=== PATIENT | male | born 1970 | race Caucasian/White ===

== ENCOUNTER 2016-12-11 02:52 | Emergency (ER) | payer BC ==
[2016-12-11 03:26] LABS: BASOPHILS 0.5 %; BASOPHILS ABSOLUTE 0.04 10/3/uL (0.0-0.16); EOSINOPHILS 3.2 %; EOSINOPHILS ABSOLUTE 0.24 10/3/uL (0.0-0.53); ER CBC TAT 0 Hrs 05 Mins; HEMATOCRIT 40.7 % (40.0-51.0); HEMOGLOBIN 14.5 g/dL (13.6-17.8); IMMATURE GRANULOCYTES 0.4 %; IMMATURE GRANULOCYTES ABSOLUTE 0.03 10/3/uL (0.0-0.11); LYMPHOCYTES 37.8 %; MEAN CORPUS HGB CONC 35.6 g/dL (32.0-36.0); MEAN CORPUSCULAR HEMOGLOB 30.5 pg (26.0-34.0); MEAN CORPUSCULAR VOLUME 85.5 fL (80-100); MEAN PLATELET VOLUME 9.5 fL (9.2-13.0); MONOCYTES ABSOLUTE 0.59 10/3/uL (0.21-1.20); NEUTROPHILS 50.1 %; NEUTROPHILS ABSOLUTE 3.71 10/3/uL (2.02-8.40); PLATELET COUNT 255 10/3/uL (150-400); RBC DISTRIBUTION WIDTH 12.8 % (12.0-16.0); RED CELL COUNT 4.76 10/6/uL (4.7-6.1); WHITE BLOOD CELLS 7.4 10/3/uL (4.5-10.5)
[2016-12-11 03:27] LABS: MANUAL DIFF NO %
[2016-12-11 03:46] LABS: A/G RATIO 1.4 (0.7-1.9); ALBUMIN 4.1 G/DL (3.5-5.0); ALKALINE PHOSPHATASE 73 U/L (45-117); BUN (BLOOD UREA NITROGEN) 12 MG/DL (6-23); CALCIUM, SERUM 8.9 MG/DL (8.5-10.4); CHLORIDE, SERUM 107 MMOL/L (96-112); CO2 (CARBON DIOXIDE) 27 MMOL/L (24-34); CREATININE 1.33 MG/DL (0.70-1.30); GFR AFRICAN AMERICAN 74 ML/MIN (>=60); GFR NON AFRICAN AMERICAN 64 ML/MIN (>=60); GLUCOSE, SERUM 103 MG/DL (60-99); POTASSIUM, SERUM 4.5 MMOL/L (3.5-5.3); SGOT(AST) 12 U/L (5-40); SGPT(ALT) 20 U/L (5-65); SODIUM, SERUM 145 MMOL/L (135-148); TOTAL BILIRUBIN 1.2 MG/DL (0-1.2); TOTAL PROTEIN 7.1 G/DL (6.0-8.5)
[2016-12-11 03:47] LABS: LACTATE 1.9 MMOL/L (0.3-2.4)
[2016-12-12] MEDS ORDERED: TIMOLOL MAL0.25 % OPH (16:48)
[2016-12-12] MEDS ORDERED: ADVIL PO (16:49)
== END 2016-12-11 05:09 | disposition home or self-care (01) ==
LOC: ER 02:52
PROVIDERS: Nurse Practitioner
DX: R51 Headache (principal); I10 Essential (primary) hypertension
CPT/HCPCS: 70450; 80053; 83605; 84145; 85025; 96374; 96375; 99284; J1170; J1200; J1885; J2360; J2550; J2765

== ENCOUNTER 2016-12-12 11:14 | Inpatient (IN) | payer BC ==
--- NOTE | ~2016-12-12 | DS ---
Discharge Summary [facility] [address] [place]. [address] NAME: JESSICA GE : 70 STATUS : DIS IN PAT#: [id number] AGE: 46 ADM/REG DATE : 12/12/16 MR#: [id number] REPORT SERV DATE: 12/27/16 DICTATED BY: PASCUAL POLANCO DATE: 12/26/16 REPORT STATUS : Draft TRANSCRIBED BY: MODL DATE: 12/26/16 Data Collection from hospitalization DISCHARGE DIAGNOSES: 1. Intractable headache and neck stiffness - neck stiffness much improved. 2. Viral meningitis. 3. Nausea and vomiting. 4. Primary hypertension. 5. Constipation. 6. Allergic dermatitis, likely secondary to Zofran - improving. 7. Hiccups/diaphragm spasticity. 8. Bilateral glaucoma. CONSULTATIONS: None. PROCEDURES PERFORMED: Lumbar spinal puncture on 12/12/2016. DISCHARGE MEDICATIONS: Lioresal 10 mg three times a day as needed, Dilaudid 2 mg every eight hours as needed, Advil 400 to 600 mg daily as needed, MS Contin 15 mg every eight hours, Protonix 40 mg daily, Phenergan 25 mg every eight hours as needed, and timolol one drop twice a day. CONDITION AT DISCHARGE: Stable. DISPOSITION: The patient was discharged home on a regular diet with activities as instructed. He will follow up with Dr. Pascual Polanco on 12/22/2016. HOSPITAL COURSE: This is a 46-year-old man who had been complaining of intractable headache since prior to this admission. The patient reported no associated symptoms such as coughing, fever, sneezing with headache. The patient said he had noticed some weakness and nausea but no vomiting with the headache. He reports that he initially self-treated thinking that this was a normal headache, however, reports that the headache continued to worsen. He presented to [facility] at 2 a.m. and was sent home with Percocet and Phenergan. He reports that Percocet was ineffective. He said his headache worsened with light, movement of his neck, and with any movement such as positional changes. He reports that he noticed some improvement of his headache with his room being kept in the dark, IV Dilaudid, and not moving. He reported that his headache was an 8/10 on a scale of 0 to 10 and reports improvement of the headache with Dilaudid to a 6/10, and this lasted approximately an hour. He said that he had had some decreased oral intake since he had been nauseated. He reports that he had been healthy and did get his flu shot. He was admitted to the hospital at this time for further evaluation and treatment. Upon admission, a lumbar puncture was performed. CSF was clear. It was negative for Strep pneumoniae, negative for influenzae, negative for N. meningitidis. CSF Gram stain - no organisms seen. Cultures were still in progress. The patient was going to be treated with long-acting morphine sulfate, and we would increase the availability of IV Dilaudid. We would monitor his tolerance of pain medication, and we would need to evaluate his short- acting regimen and plan for an oral regimen and plan to discharge the patient home soon once Discharge Summary [address] [place]. [address] NAME: JESSICA GE : 70 STATUS : DIS IN PAT#: [id number] AGE: 46 ADM/REG DATE : 12/12/16 MR#: [id number] REPORT SERV DATE: 12/27/16 DICTATED BY: PASCUAL POLANCO DATE: 12/26/16 REPORT STATUS : Draft TRANSCRIBED BY: MERLE DATE: 12/26/16 the pain was controlled. Influenza screen was negative. He did receive a dose of Rocephin while in the emergency room. White count was within normal limits. He had a low-grade fever the previous evening of 100.4, but it was now 98.8. Tylenol would be continued as needed. IV fluid therapy continued. Repeat labs would be performed the following morning, and the patient was placed on electrolyte protocol. We would continue antiemetics. Fall precautions were in place. We would keep the patient's room dark to aid with minimizing the headache. He was going to be placed on DVT prophylaxis given his decreased mobility with MARIAELENA hose. The following day, he continued to have a headache and neck stiffness. He had nausea but no vomiting. He now complained of some constipation and abdominal cramping and spasms. He still had a poor oral intake due to the nausea. Eyedrops were being given for his glaucoma. It was felt that his intractable headache, neck stiffness, and cervical/thoracic spine pain was likely secondary to viral meningitis. His blood pressure had been elevated, likely secondary to pain. We increased his IV antiemetics. On 12/15/2016, the patient reports that his nausea had improved, but he did have a small amount of vomiting. Oral intake was still slow to improve. He was trying to drink Sprite. He said that he had some hiccups. His fiancee had noticed a rash on the left side of his back. He had some renal insufficiency secondary to dehydration. He had had a bowel movement on . The next day, he reported that his headache was improving with the oral Dilaudid. He reported having left photophobia and neck pain. He did have some nausea that morning. The patient had received Zofran and had noticed itching and a rash. The patient believed this was caused by the Zofran. Zofran was stopped. Benadryl was being given. Discharge planning was performed. On 12/17/2016, he denied shortness of breath or chest pain. His nausea was much improved. Phenergan was effective. He still had ongoing hiccups. Ativan was helpful, but he was interested in trying baclofen. He reported that his photophobia was much better and he wanted to go home. He continued to have a headache, but it was now tolerable with the current regimen of MS Contin and Dilaudid. Neck stiffness was much improved. Discharge instructions were given. A trial of baclofen was going to be performed. His Benadryl continued as needed. Due to his improved and stable condition, he was discharged home with the above-stated instructions. Information collected by: Bhakti Morin I submit the above information as my discharge summary. DERIC/MERLE Pascual Polanco M.D. / [id number] CC: Pascual Polanco M.D.
--- NOTE | ~2016-12-12 | HP ---
History And Physical [facility] [address] [place]. [address] NAME: JESSICA GE : 70 STATUS : ADM Nadia PAT#: [id number] AGE: 46 ADM/REG DATE : 12/12/16 MR#: [id number] REPORT SERV DATE: 12/13/16 DICTATED BY: PASCUAL POLANCO DATE: 12/13/16 REPORT STATUS : Draft TRANSCRIBED BY: MODL DATE: 12/13/16 DATE OF ADMISSION: 12/12/2016 CHIEF COMPLAINT: Intractable headache, neck stiffness, and back pain. HISTORY OF PRESENT ILLNESS: The patient is a 46-year-old male who has been complaining of intractable headache since last . The patient reports no associated symptoms such as coughing, fever, sneezing with headache. The patient reports he had noticed some weakness and nausea, but no vomiting with the headache. The patient reports he initially self treated thinking that this is just a normal headache, however, reports that the headache has been worsening, and therefore, did show up at [facility] at 2 in the morning yesterday and was sent home with Percocet and Phenergan. The patient reports Percocet was ineffective. He reports that the headache worsened with light, movement of his neck, and any movement such as positional changes. The patient reports he had noted some improvement of his headache with his room being kept in the dark, Dilaudid IV, and not moving. The patient reports his headache is an 8/10 on a 0-10 scale and reports improvement of headache with Dilaudid to 6/10 that lasted approximately an hour. The patient reports he has had some decrease in his p.o. intake since he has been nauseous. Otherwise, the patient reports he has been healthy and he did get his flu shot. ALLERGIES: NO KNOWN DRUG ALLERGIES. CODE STATUS: The patient is full code. MEDICATIONS: The patient's home medications are only p.r.n. use of ibuprofen and timolol maleate 0.25% ophthalmic solution to his right eye twice a day. PAST MEDICAL HISTORY: 1. Bilateral glaucoma, but only right eye is being treated, followed by legal consultant. 2. History of hypertension. He was on lisinopril in the past, but has not had medication for blood pressure since the patient reports he has been exercising and diet changes. 3. 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 PAST SURGICAL HISTORY: He reports the left arm was reset at age 10, wisdom teeth extraction at age [age] years old. He reports he had lithotripsy, LASIK treatment to bilateral eyes. SOCIAL HISTORY: The patient denies any history of tobacco use. He reports his alcohol intake is two beers two times a week. 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 The patient reports he is engaged. He has two children. He has a 17-year-old son and a 25-year-old daughter. Also, patient denies any history of illicit drug use. FAMILY HISTORY: 1. Father has hypertension, glaucoma, and history of bowel obstruction, required surgery. 2. Mother has breast cancer and back pain. 3. Maternal grandfather has history of heart disease. History And Physical [address] [place]. [address] NAME: JESSICA GE : 70 STATUS : ADM Nadia PAT#: [id number] AGE: 46 ADM/REG DATE : 12/12/16 MR#: [id number] REPORT SERV DATE: 12/13/16 DICTATED BY: PASCUAL POLANCO DATE: 12/13/16 REPORT STATUS : Draft TRANSCRIBED BY: MERLE DATE: 12/13/16 The patient denies any family history of stroke, diabetes, kidney disease, or cancer. REVIEW OF SYSTEMS: 1. Patient reports a history of glaucoma in bilateral eyes, but right eye is being treated. He denies any history of hearing loss or any dizziness. He reports that he has only been photosensitive since his headache that started last week. No history of allergies, runny nose, or sinus problem. 2. Patient denies any complaint of chest pain. He reports history of hypertension, now off medication. 3. The patient denies any shortness of breath. He reports no history of recent cough or upper respiratory infection or fever. The patient reports he has not had any recent travel outside of the [place]. 4. The patient reports some nausea, but no vomiting. The patient reports his p.o. intake has declined since he has been feeling nauseous. The patient reports no history of renal insufficiency. He reports he had a kidney stone in the past. He reports he has been urinating very well. He denies any complaint of abdominal pain. He has had the last BM yesterday. The patient with no history of arthritis. He reports his back pain has only started since this headache. He reports that he has had some neck stiffness, he reports that he feels like "his spine will burst when he touches his chin to his chest." He reports he has also had some hip pain that he has experienced since last Thursday. He reports he has been weak and requires assistance when he walks to use the restroom. The patient reports no fall. 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 5. The patient denies any swelling. 6. The patient denies any history of seizure or stroke; only recent history of weakness and headache since last Thursday. 7. The patient denies any history of depression or anxiety. 8. The patient denies any history of thyroid disease or diabetes. The patient with no history of bleeding. Uses only ibuprofen p.r.n. LABORATORY DATA: Chest x-ray on 12/12/2016 was negative. The patient had a lumbar puncture done on 12/12/2016, so far, clear CSF, normal. Negative Strep pneumoniae. Negative influenza. Negative N meningitidis. CSF gram stain, no organisms seen. Cultures are still in progress. On 12/12/2016, labs revealed sodium 142, potassium 4.2, chloride 108, CO2 of 26, BUN 15, creatinine 1.27, GFR 67, and glucose 91. WBC 7.9, hemoglobin 14.5, hematocrit 41.2, and platelet 240. AST 8, bilirubin 0.7, total protein 7.3, ALT 16, albumin 3.8, and alkaline phosphate 78. On 12/13/2016, labs revealed sodium 144, potassium 4.8, chloride 112, CO2 of 27, BUN 12, creatinine 1.26, glucose 91, GFR of 68. WBC 7.6, hemoglobin 13.8, hematocrit 39.8, and platelet of 228. INR on 12/12/2016 was 1.0, PT was 13.2, and PTT of 24.6. PHYSICAL EXAMINATION: History And Physical [address] [place]. [address] NAME: JESSICA GE : 70 STATUS : ADM Nadia PAT#: [id number] AGE: 46 ADM/REG DATE : 12/12/16 MR#: [id number] REPORT SERV DATE: 12/13/16 DICTATED BY: PASCUAL POLANCO DATE: 12/13/16 REPORT STATUS : Draft TRANSCRIBED BY: MERLE DATE: 12/13/16 VITAL SIGNS: A.m. temp was 98.8, did have 100.4 last p.m.; pulse of 71; respiratory rate 18 on room air; BP of 132/83; O2 saturation of 93% on room air. Weight 87.23 kg. GENERAL: The patient is a pleasant male, somewhat in pain with movement of his head and positional changes, otherwise, in no acute distress noted. HEENT: Oral mucosa moist. Normocephalic, atraumatic. Nonicteric bilaterally. Eyes: PERRL. Limited neck range of motion secondary to headache/pain. NECK: No JVD. Trachea midline. No pain with movement, limited range of motion secondary to headache. CHEST: No deformity noted. LUNGS: Clear to auscultation bilaterally. Symmetrical expansion. CV: Regular rate and rhythm. Normal S1, S2. No murmurs noted. ABDOMEN: Soft, nontender. Bowel sounds x4 quadrants. No organomegaly. : Not assessed. EXTREMITIES: No clubbing, cyanosis, or edema noted. Good bilateral distal pulses palpable. 5/5 bilateral upper extremity and lower extremity strength. Gait not assessed. SKIN: No rash or induration noted. Right lower arm with peripheral IV dry and intact without redness. IV FLUID: Normal saline at 125 mL/h. ASSESSMENT: 1. Intractable headache, neck stiffness, cervical and thoracic spine pain, likely secondary to viral meningitis. 2. Viral meningitis. 3. Renal insufficiency, likely secondary to volume deficit. 4. History of hypertension, primary, controlled. 5. History of bilateral glaucoma. 6. Generalized weakness secondary to meningitis. PLAN: Discussed with Dr. Pascual Polanco. We will continue to manage the patient's pain. We will try the patient on long-acting morphine sulfate 15 mg p.o. b.i.d., increase availability of p.r.n. IV Dilaudid to q.4 hours. We will monitor tolerance of pain medication, and we will need to evaluate the patient's short-acting regimen and plan for p.o. regimen and plan to discharge the patient home soon once the pain is controlled. Reviewed current laboratory study. Patient's CSF was normal for any bacteria and Gram stain was negative; however, the culture is still pending for CSF. Patient's influenza screen was negative. The patient did receive a dose of Rocephin while at the ER. The patient's WBC within normal, had 100.4, low-grade temp last p.m., but this morning was 98.8. We will continue p.r.n. Tylenol, continue IV fluid therapy for now, monitor laboratory studies. We will repeat labs in the a.m., place the patient on electrolyte protocol, continue antiemetic, fall precaution. Continue to keep the patient's room dark to aid with minimizing his headache. We will need to, for now, place the patient on deep vein thrombosis prophylaxis given the patient's decreased mobility with MARIAELENA hose. We will follow up on CSF culture. Plan to keep the patient inpatient status for now and hope to have better pain control and discharge the patient back to home with pain med regimen in the next 24-48 hours. Discussed plan with the patient and fiancee at the bedside. Also addressed the code status with the patient. The patient desires full code. POLST form completed and History And Physical [address] [place]. [address] NAME: JESSICA GE : 70 STATUS : ADM Nadia PAT#: [id number] AGE: 46 ADM/REG DATE : 12/12/16 MR#: [id number] REPORT SERV DATE: 12/13/16 DICTATED BY: PASCUAL POLANCO DATE: 12/13/16 REPORT STATUS : Draft TRANSCRIBED BY: MODL DATE: 12/13/16 filed in chart. The patient is at risk for fall, further renal insufficiency/acute kidney injury. The patient is at risk for electrolyte derangement. DICTATED BY: Marleny Riggs NP CLP/MODL Pasucal Polanco M.D. / [id number] CC: Pascual Polanco M.D.
[2016-12-12 11:07] LABS: BASOPHILS 0.4 %; BASOPHILS ABSOLUTE 0.03 10/3/uL (0.0-0.16); EOSINOPHILS 2.8 %; EOSINOPHILS ABSOLUTE 0.22 10/3/uL (0.0-0.53); ER CBC TAT 0 Hrs 05 Mins; HEMATOCRIT 41.2 % (40.0-51.0); HEMOGLOBIN 14.5 g/dL (13.6-17.8); IMMATURE GRANULOCYTES 0.3 %; IMMATURE GRANULOCYTES ABSOLUTE 0.02 10/3/uL (0.0-0.11); LYMPHOCYTES 29.5 %; LYMPHOCYTES ABSOLUTE 2.34 10/3/uL (0.67-4.30); MEAN CORPUS HGB CONC 35.2 g/dL (32.0-36.0); MEAN CORPUSCULAR HEMOGLOB 30.3 pg (26.0-34.0); MEAN CORPUSCULAR VOLUME 86.2 fL (80-100); MEAN PLATELET VOLUME 9.4 fL (9.2-13.0); MONOCYTES 8.3 %; MONOCYTES ABSOLUTE 0.66 10/3/uL (0.21-1.20); NEUTROPHILS 58.7 %; NEUTROPHILS ABSOLUTE 4.65 10/3/uL (2.02-8.40); PLATELET COUNT 240 10/3/uL (150-400); RBC DISTRIBUTION WIDTH 12.8 % (12.0-16.0); RED CELL COUNT 4.78 10/6/uL (4.7-6.1); WHITE BLOOD CELLS 7.9 10/3/uL (4.5-10.5)
[2016-12-12 11:08] LABS: MANUAL DIFF NO %
[2016-12-12 11:15] LABS: PARTIAL THROMBO TIME 24.6 SEC (22.5-37.2); PROTIME (NOT ORD) 13.2 SEC (12.0-14.5)
[2016-12-12 11:21] LABS: A/G RATIO 1.1 (0.7-1.9); ALBUMIN 3.8 G/DL (3.5-5.0); ALKALINE PHOSPHATASE 78 U/L (45-117); BUN (BLOOD UREA NITROGEN) 15 MG/DL (6-23); CALCIUM, SERUM 8.9 MG/DL (8.5-10.4); CHLORIDE, SERUM 108 MMOL/L (96-112); CO2 (CARBON DIOXIDE) 26 MMOL/L (24-34); CREATININE 1.27 MG/DL (0.70-1.30); GFR AFRICAN AMERICAN 78 ML/MIN (>=60); GFR NON AFRICAN AMERICAN 67 ML/MIN (>=60); GLOBULIN 3.5 G/DL (2.5-4.1); GLUCOSE, SERUM 91 MG/DL (60-99); POTASSIUM, SERUM 4.2 MMOL/L (3.5-5.3); SGOT(AST) 8 U/L (5-40); SGPT(ALT) 16 U/L (5-65); SODIUM, SERUM 142 MMOL/L (135-148); TOTAL BILIRUBIN 0.7 MG/DL (0-1.2); TOTAL PROTEIN 7.3 G/DL (6.0-8.5)
[2016-12-12 11:57] LABS: CPK (IF ELEVATED MB BANDS) 68 U/L (0-200)
[2016-12-12 13:57] LABS: GLUCOSE CSF 46 MG/DL (45-70); TOTAL PROTEIN, CSF 120.6 MG/DL (15-45)
[2016-12-12 15:02] LABS: CSF BASO 0 % (NO REF RANGE); CSF EOS 0 % (0-1); CSF LYMPH (NOT ORD) 95 % (28-96); CSF MONO 4 % (16-56); CSF SEGS (NOT ORD) 1 % (0-7)
[2016-12-12 15:03] LABS: CSF COLOR (NOT ORD) COLORLESS (COLORLESS); CSF RBC (NOT ORD) 12 MM3 (NO REFERENCE); CSF WBC (NOT ORD) 684 /uL (0-10)
[2016-12-12 15:04] LABS: CSF APPEARANCE (NOT ORD) CLEAR (CLEAR); CSF XANTHROCHROMIA NEG (NEG)
[2016-12-12] MEDS ORDERED: TIMOLOL MAL0.25 % OPH (16:48)
[2016-12-12] MEDS ORDERED: ADVIL PO (16:49)
[2016-12-13 06:09] LABS: BASOPHILS 0.5 %; BASOPHILS ABSOLUTE 0.04 10/3/uL (0.0-0.16); EOSINOPHILS 2.1 %; EOSINOPHILS ABSOLUTE 0.16 10/3/uL (0.0-0.53); HEMATOCRIT 39.8 % (40.0-51.0); HEMOGLOBIN 13.8 g/dL (13.6-17.8); IMMATURE GRANULOCYTES 0.4 %; IMMATURE GRANULOCYTES ABSOLUTE 0.03 10/3/uL (0.0-0.11); LYMPHOCYTES ABSOLUTE 1.97 10/3/uL (0.67-4.30); MEAN CORPUS HGB CONC 34.7 g/dL (32.0-36.0); MEAN CORPUSCULAR HEMOGLOB 30.1 pg (26.0-34.0); MEAN CORPUSCULAR VOLUME 86.9 fL (80-100); MEAN PLATELET VOLUME 9.7 fL (9.2-13.0); MONOCYTES ABSOLUTE 0.76 10/3/uL (0.21-1.20); NEUTROPHILS ABSOLUTE 4.63 10/3/uL (2.02-8.40); PLATELET COUNT 228 10/3/uL (150-400); RBC DISTRIBUTION WIDTH 12.4 % (12.0-16.0); RED CELL COUNT 4.58 10/6/uL (4.7-6.1); WHITE BLOOD CELLS 7.6 10/3/uL (4.5-10.5)
[2016-12-13 06:12] LABS: MANUAL DIFF NO %
[2016-12-13 06:18] LABS: BUN (BLOOD UREA NITROGEN) 12 MG/DL (6-23); CALCIUM, SERUM 8.4 MG/DL (8.5-10.4); CHLORIDE, SERUM 112 MMOL/L (96-112); CO2 (CARBON DIOXIDE) 27 MMOL/L (24-34); CREATININE 1.26 MG/DL (0.70-1.30); GFR AFRICAN AMERICAN 79 ML/MIN (>=60); GFR NON AFRICAN AMERICAN 68 ML/MIN (>=60); GLUCOSE, SERUM 91 MG/DL (60-99); POTASSIUM, SERUM 4.8 MMOL/L (3.5-5.3); SODIUM, SERUM 144 MMOL/L (135-148)
[2016-12-14 05:48] LABS: BASOPHILS 0.5 %; BASOPHILS ABSOLUTE 0.03 10/3/uL (0.0-0.16); EOSINOPHILS ABSOLUTE 0.26 10/3/uL (0.0-0.53); HEMOGLOBIN 13.1 g/dL (13.6-17.8); IMMATURE GRANULOCYTES 0.2 %; IMMATURE GRANULOCYTES ABSOLUTE 0.01 10/3/uL (0.0-0.11); LYMPHOCYTES 29.8 %; LYMPHOCYTES ABSOLUTE 1.92 10/3/uL (0.67-4.30); MEAN CORPUS HGB CONC 35.4 g/dL (32.0-36.0); MEAN CORPUSCULAR VOLUME 84.9 fL (80-100); MEAN PLATELET VOLUME 9.6 fL (9.2-13.0); MONOCYTES 10.4 %; MONOCYTES ABSOLUTE 0.67 10/3/uL (0.21-1.20); NEUTROPHILS 55.1 %; NEUTROPHILS ABSOLUTE 3.55 10/3/uL (2.02-8.40); PLATELET COUNT 230 10/3/uL (150-400); RBC DISTRIBUTION WIDTH 12.4 % (12.0-16.0); RED CELL COUNT 4.36 10/6/uL (4.7-6.1); WHITE BLOOD CELLS 6.4 10/3/uL (4.5-10.5)
[2016-12-14 05:49] LABS: MANUAL DIFF NO %
[2016-12-14 06:03] LABS: BUN (BLOOD UREA NITROGEN) 9 MG/DL (6-23); CALCIUM, SERUM 8.4 MG/DL (8.5-10.4); CHLORIDE, SERUM 110 MMOL/L (96-112); CO2 (CARBON DIOXIDE) 27 MMOL/L (24-34); CREATININE 1.01 MG/DL (0.70-1.30); GFR AFRICAN AMERICAN 103 ML/MIN (>=60); GFR NON AFRICAN AMERICAN 89 ML/MIN (>=60); GLUCOSE, SERUM 100 MG/DL (60-99); PHOSPHORUS, SERUM 3.2 MG/DL (2.5-4.5); POTASSIUM, SERUM 4.2 MMOL/L (3.5-5.3); SODIUM, SERUM 144 MMOL/L (135-148)
[2016-12-15 06:41] LABS: CALCIUM, SERUM 8.2 MG/DL (8.5-10.4); CHLORIDE, SERUM 109 MMOL/L (96-112); CO2 (CARBON DIOXIDE) 28 MMOL/L (24-34); CREATININE 0.99 MG/DL (0.70-1.30); GFR AFRICAN AMERICAN 105 ML/MIN (>=60); GFR NON AFRICAN AMERICAN 91 ML/MIN (>=60); GLUCOSE, SERUM 97 MG/DL (60-99); SODIUM, SERUM 140 MMOL/L (135-148)
[2016-12-15 06:42] LABS: BUN (BLOOD UREA NITROGEN) 13 MG/DL (6-23)
[2016-12-17] MEDS ORDERED: DIL2TAB PO (14:48)
[2016-12-17] MEDS ORDERED: PR25 PO (14:49)
[2016-12-17] MEDS ORDERED: MSCONT15 PO (14:49)
[2016-12-17] MEDS ORDERED: PROTONIX PO (14:50)
[2016-12-17] MEDS ORDERED: LIOR10 PO ×2 (14:51)
== END 2016-12-17 15:58 | disposition home or self-care (01) | DRG 76 ==
LOC: ER 11:14 → CDU1 17:42 → 2SO 20:22
PROVIDERS: Hospitalist; Nurse Practitioner Family
PROC: 009U3ZX Drainage of Spinal Canal, Percutaneous Approach, Diagnostic (ICD-10-PCS; principal; 2016-12-12)
PROC: B01BZZZ Fluoroscopy of Spinal Cord (ICD-10-PCS; 2016-12-12)
DX: A87.9 Viral meningitis, unspecified (principal); E83.42 Hypomagnesemia; I10 Essential (primary) hypertension; H40.9 Unspecified glaucoma; Z87.442 Personal history of urinary calculi; N28.9 Disorder of kidney and ureter, unspecified; E86.9 Volume depletion, unspecified
CPT/HCPCS: 62270; 70450; 71010; 77003; 80048; 80053; 81001; 82550; 82945; 83605; 83735; 84100; 84145; 84157; 85025; 85610; 85730; 86403; 86403-59; 87040; 87070; 87205; 89051; 93005; 96374; 96375; 99284; 99285; A9270-GY; J0360; J1170; J1200; J1885; J2360; J2405; J2550; J2765; J3475